=== PATIENT | female | born 1960 | race American Indian/Alaskan Native ===

== ENCOUNTER 2018-07-06 23:35 | Emergency (ER) | payer BC, MEDICARE ==
[2018-07-06] MEDS ORDERED: NACL 0.9% 1000 ML 1,000 ML IV ONE (23:48)
--- NOTE | 2018-07-06 23:49 | Emergency Department Report ---
ED General Adult HPI - General Stated complaint: WEAK AND DIZZY Time Seen by Provider: 07/06/18 23:45 - History of Present Illness Initial comments: 57-year-old female presents to ED with complaint of headache, dizziness, and diffuse body pain. Patient states she took 3 of her 100 mg trazodone pills for a total of 300 mg, 1.5 seroquel pills, and another sleeping pill, unknown name; all of which are prescribed to her. She has history of schizophrenia and bipolar disorder, also reports crack cocaine use one day ago. Patient denies taking more pills than prescribed, denies overdose, denies SI or HI. Patient found to be hypotensive with EMS. -: This evening Location: head, back Consistency: constant Improves with: none Worsens with: none Associated Symptoms: headaches. denies: chest pain, nausea/vomiting, shortness of breath - Related Data Home Medications Medication Instructions Recorded Confirmed Last Taken Ibuprofen [Motrin] 1 tab PO PRN PRN 02/26/14 02/28/14 Unknown Lisinopril 20 mg PO DAILY 02/26/14 02/28/14 02/26/14 Omeprazole [PriLOSEC] 40 mg PO DAILY 02/26/14 02/28/14 02/26/14 Previous Rx's Medication Instructions Recorded Last Taken Type Naproxen [Naprosyn] 500 mg PO BID #20 tablet 07/07/18 Unknown Rx Allergies Allergy/AdvReac Type Severity Reaction Status Date / Time No Known Allergies Allergy Verified 02/26/14 12:49 ED Review of Systems ROS: Stated complaint: WEAK AND DIZZY Other details as noted in HPI Comment: All other systems reviewed and negative Constitutional: denies: fever Respiratory: denies: shortness of breath Cardiovascular: denies: chest pain Gastrointestinal: denies: abdominal pain, vomiting Neurological: headache, vertigo ED Past Medical Hx - Past Medical History Hx Hypertension: Yes Hx GERD: Yes Hx Arthritis: Yes Hx Asthma: No Hx COPD: No Hx Tuberculosis: No Hx HIV: No - Social History Smoking Status: Current Every Day Smoker - Medications Home Medications: Home Medications Medication Instructions Recorded Confirmed Last Taken Type Ibuprofen [Motrin] 1 tab PO PRN PRN 02/26/14 02/28/14 Unknown History Lisinopril 20 mg PO DAILY 01/19/15 01/21/15 01/19/15 History Omeprazole [PriLOSEC] 40 mg PO DAILY 02/26/14 02/28/14 02/26/14 History Naproxen [Naprosyn] 500 mg PO BID #20 tablet 07/07/18 Unknown Rx ED Physical Exam - General General appearance: alert - Head Head exam: Present: atraumatic, normocephalic - Eye Eye exam: Present: normal appearance - ENT ENT exam: Present: mucous membranes moist - Neck Neck exam: Present: normal inspection - Respiratory Respiratory exam: Present: normal lung sounds bilaterally. Absent: respiratory distress, wheezes - Cardiovascular Cardiovascular Exam: Present: regular rate, normal rhythm - GI/Abdominal GI/Abdominal exam: Present: soft. Absent: distended, tenderness - Extremities Exam Extremities exam: Present: normal inspection, full ROM - Neurological Exam Neurological exam: Present: alert, oriented X3, CN II-XII intact. Absent: motor sensory deficit - Psychiatric Psychiatric exam: Present: normal affect, normal mood - Skin Skin exam: Present: warm, dry, intact, normal color ED Course Vital Signs 07/06/18 07/07/18 07/07/18 23:46 00:40 01:00 Temperature 98.0 F Pulse Rate 77 88 Respiratory 20 12 Rate Blood Pressure 77/45 90/47 [Left] O2 Sat by Pulse 100 100 99 Oximetry 07/07/18 07/07/18 07/07/18 01:31 02:24 03:28 Temperature Pulse Rate 88 79 76 Respiratory 13 20 13 Rate Blood Pressure 97/52 107/54 105/58 [Left] O2 Sat by Pulse 100 100 99 Oximetry ED Medical Decision Making - Lab Data Result diagrams: 07/07/18 00:05 07/07/18 00:05 - EKG Data -: EKG Interpreted by [facility]h EKG shows normal: sinus rhythm, axis, intervals, QRS complexes, ST-T waves Rate: normal - EKG Data Interpretation: no acute changes - Radiology Data Radiology results: report reviewed, image reviewed - Medical Decision Making 57-year-old female with headache, dizziness, total body pain and hypotension. Patient's blood pressures responded appropriately to IV fluid boluses. Remainder of vitals normal, patient afebrile, not tachycardic. Initial lactic acid slightly elevated at 2.3, however wbc's normal. Repeat lactic acid is in the normal range. CT head and chest x-ray normal. Urine shows no evidence of UTI. Drug screen positive for cocaine which patient admitted to using. Presentation is likely due to volume depletion. Renal function is normal. Patient has received 2 L of fluids, states she is feeling much better at this time. Pt ambulated without assistance, without difficulty. Will discharge at this time. Return precautions given. Outpt follow-up advised. - Differential Diagnosis dehydration, ARF, infection Critical care attestation.: If time is entered above; I have spent that time in minutes in the direct care of this critically ill patient, excluding procedure time. ED Disposition Clinical Impression: Dehydration, Acute headache, Cocaine abuse Disposition: TO HOME OR SELFCARE Is pt being admited?: No Condition: Stable Instructions: Dehydration (ED), Cocaine Abuse (ED), Acute Headache (ED) Prescriptions: Naproxen [Naprosyn] 500 mg PO BID #20 tablet Referrals: QAMAR MENG MD [Primary Care Provider] - 3-5 Days Time of Disposition: 03:55
[2018-07-07 00:18] LABS: Basophils % (Auto) 0.3 % (0.0-1.8); Eosinophils # (Auto) 0.1 K/mm3 (0.0-0.4); Eosinophils % (Auto) 0.8 % (0.0-4.3); Hematocrit 33.9 % (30.3-42.9); Hemoglobin 11.9 gm/dl (10.1-14.3); Lymphocytes # (Auto) 3.2 K/mm3 (1.2-5.4); Lymphocytes % (Auto) 34.1 % (13.4-35.0); Mean Corpuscular HGB Conc 35 % (30-34); Mean Corpuscular Volume 93 fl (79-97); Monocytes # (Auto) 0.8 K/mm3 (0.0-0.8); Monocytes % (Auto) 8.5 % (0.0-7.3); Platelet Count 199 K/mm3 (140-440); Red Blood Count 3.63 M/mm3 (3.65-5.03); Red Cell Distribution Width 13.4 % (13.2-15.2)
[2018-07-07 00:31] LABS: INR 0.93 (0.87-1.13)
[2018-07-07 00:32] LABS: Partial Thromboplastin Time 26.8 Sec. (24.2-36.6)
[2018-07-07 00:42] LABS: Amphetamine Screen,Urine PRESUMPTIVE NEGATIVE; Benzodiazepines Screen,Urine PRESUMPTIVE NEGATIVE; Cannabinoid Screen,Urine PRESUMPTIVE NEGATIVE; Methadone Screen,Urine PRESUMPTIVE NEGATIVE; Opiate Screen,Urine PRESUMPTIVE NEGATIVE
--- NOTE | 2018-07-07 00:44 | XRay Report ---
PROCEDURE: XR CHEST 1V AP TECHNIQUE: Chest radiograph single view. HISTORY: weakness COMPARISONS: None . FINDINGS: Heart: Normal. Mediastinum/Vessels: Normal. Lungs/Pleural space: Normal. Bony thorax: No acute osseous abnormality. Life support devices: None. IMPRESSION: No acute cardiopulmonary abnormality. This document is electronically signed by Bo Jimenez MD., Jul 07 2018 12:42:33 AM ET
[2018-07-07 00:48] LABS: Bilirubin,Urine NEG (Negative); Blood,Urine NEG (Negative); Color,Urine Yellow (Yellow); Hyaline Casts,Urine 2 /LPF; Mucus,Urine FEW /HPF; Protein,Urine <15 mg/dL mg/dL (Negative); Urobilinogen,Urine < 2.0 mg/dL (<2.0)
[2018-07-07] MEDS ORDERED: NACL 0.9% 1000 ML 1,000 ML IV ONE ×2 (00:48→02:31)
--- NOTE | 2018-07-07 00:57 | Cat Scan Report ---
PROCEDURE: CT HEAD/BRAIN WO CON TECHNIQUE: Computerized tomography of the head was performed without contrast material. CT DOSE LENGTH PRODUCT: mGycm HISTORY: headache COMPARISONS: None . FINDINGS: Skull and scalp: Normal . Paranasal sinuses: Normal . Ventricles and subarachnoid spaces: Normal . Cerebrum: No evidence of hemorrhage, acute infarction or mass . Cerebellum and brainstem: No evidence of hemorrhage, acute infarction or mass . Vasculature: Normal . IMPRESSION: Normal Examination . This document is electronically signed by Bo Jimenez MD., Jul 07 2018 12:55:02 AM ET
[2018-07-07 01:13] LABS: Albumin 3.8 g/dL (3.9-5); Calcium 8.7 mg/dL (8.4-10.2)
[2018-07-07 01:15] LABS: Cocaine Screen,Urine PRESUMPTIVE POSITIVE
[2018-07-07 03:32] VITALS: BP 105/58
== END 2018-07-07 03:59 | disposition home or self-care (01) ==
LOC: ED 23:35
DX: E86.0 Dehydration (principal); F14.10 Cocaine abuse, uncomplicated; I95.9 Hypotension, unspecified; I10 Essential (primary) hypertension; K21.9 Gastro-esophageal reflux disease without esophagitis; M19.90 Unspecified osteoarthritis, unspecified site; F17.200 Nicotine dependence, unspecified, uncomplicated
CPT/HCPCS: 36415; 70450; 71045; 80053; 80307; 81001; 82140; 84484; 85025; 85610; 85730; 93005; 93010; 96360; 96361; 99285; G0480; J7030; 80320